=== PATIENT | female | born 1950 | race Native Hawaiian/Other Pacific Islander ===

== ENCOUNTER 2016-08-25 14:08 | Outpatient (CLI) | payer OTHER | END 2016-08-25 19:25 | disposition home or self-care (01) | LOC: RAD 14:08 | DX: M25.562 Pain in left knee (principal) ==

== ENCOUNTER 2016-09-18 09:52 | Outpatient (CLI) | payer OTHER | END 2016-09-18 22:03 | disposition home or self-care (01) | LOC: MRI 09:52 | DX: M54.5 Low back pain (principal) | CPT/HCPCS: 36415; 82565; 84520; A9576 ==

== ENCOUNTER 2017-04-22 14:38 | Outpatient (CLI) | payer OTHER | END 2017-04-22 15:40 | disposition home or self-care (01) | LOC: MRI 14:38 | DX: M25.562 Pain in left knee (principal) ==

== ENCOUNTER 2018-02-22 13:55 | Outpatient (CLI) | payer OTHER | END 2018-02-22 20:28 | disposition home or self-care (01) | LOC: RAD 13:55 | DX: S09.8XXA Other specified injuries of head, initial encounter (principal) ==

== ENCOUNTER 2018-02-26 11:50 | Outpatient (CLI) | payer OTHER | END 2018-02-26 22:04 | disposition home or self-care (01) | LOC: CT 11:50 | DX: S09.8XXA Other specified injuries of head, initial encounter (principal) ==

== ENCOUNTER 2018-03-04 11:56 | Outpatient (CLI) | payer OTHER | END 2018-03-04 22:52 | disposition home or self-care (01) | LOC: US 11:56 | DX: I67.89 Other cerebrovascular disease (principal) ==

== ENCOUNTER 2018-03-11 14:18 | Outpatient (CLI) | payer OTHER | END 2018-03-11 19:53 | disposition home or self-care (01) | LOC: US 14:18 | DX: E04.1 Nontoxic single thyroid nodule (principal) ==

== ENCOUNTER 2019-04-10 03:52 | Observation (INO) | payer OTHER ==
[~2019-04-10] VITALS: Ht 165.1 cm; Wt 76.8 kg
[2019-04-10 04:12] VITALS: BP 176/80; TEMP 98.3
[2019-04-10] MEDS ORDERED: KLOR-CON M1010 MEQ PO (04:13)
[2019-04-10] MEDS ORDERED: AMLODIPINE BESYLATE PO (04:13)
[2019-04-10] MEDS ORDERED: AVALIDE1 TA1 PO (04:13)
[2019-04-10] MEDS ORDERED: DULOXETINE HCL60 MG PO (04:13)
[2019-04-10] MEDS ORDERED: LIPITOR10 MG PO (04:14)
[2019-04-10 04:49] LABS: PLATELET COUNT 663 K/uL (152-353)
[2019-04-10 05:02] LABS: POTASSIUM 3.8 mmol/L (3.6-5.2); SODIUM 121 mmol/L (136-145)
[2019-04-10 09:00] VITALS: BP 161/82; TEMP 98.3; Ht 165.1 cm; Wt 76.8 kg
[2019-04-10] MEDS ORDERED: [UNRECOGNIZED DRUG - OTHER] PO (09:12)
[2019-04-10] MEDS ORDERED: CEPHALEXIN500 MG PO (09:13)
[2019-04-10 12:00] VITALS: BP 156/79; TEMP 98.3
[2019-04-10 12:56] LABS: POTASSIUM 2.8 mmol/L (3.6-5.2)
[2019-04-10 16:00] VITALS: BP 155/74; TEMP 98.5
[2019-04-10 20:00] VITALS: BP 182/90; TEMP 98.2
[2019-04-11] VITALS (7 sets, daily range): BP systolic 156–183; BP diastolic 73–89; TEMP 97.5–98.9
[2019-04-11 06:17] LABS: PLATELET COUNT 487 K/uL (152-353)
[2019-04-11 06:25] LABS: POTASSIUM 3.6 mmol/L (3.6-5.2)
[2019-04-12 04:00] VITALS: BP 166/88; TEMP 98.5
[2019-04-12 05:36] LABS: PLATELET COUNT 512 K/uL (152-353)
[2019-04-12 08:00] VITALS: BP 165/83; TEMP 98.7
== END 2019-04-12 11:00 | disposition home or self-care (01) ==
LOC: ED 03:52 → MED/SURG 05:45
PROVIDERS: Emergency Medicine; ADMIT Internal Medicine
DX: T36.1X5A Adverse effect of cephalosporins and other beta-lactam antibiotics, initial encounter (principal); R11.2 Nausea with vomiting, unspecified; E87.1 Hypo-osmolality and hyponatremia; E87.6 Hypokalemia; D72.828 Other elevated white blood cell count; K04.7 Periapical abscess without sinus; R41.82 Altered mental status, unspecified; I10 Essential (primary) hypertension
CPT/HCPCS: 36415; 51702; 80048; 80053; 81000; 82150; 83605; 83690; 83735; 84484; 85027; 93005; 96360; 96375; 99220; 99284; G0378; J2405

== ENCOUNTER 2021-11-29 10:28 | Outpatient (CLI) | payer OTHER, MEDICARE ==
[~2021-11-29 10:28] MED LIST: AMLODIPINE BESYLATE PO; AVALIDE1 TA1 PO; CEPHALEXIN500 MG PO; DULOXETINE HCL60 MG PO; KLOR-CON M1010 MEQ PO; LIPITOR10 MG PO; [UNRECOGNIZED DRUG - OTHER] PO
== END 2021-11-29 21:00 | disposition home or self-care (01) ==
LOC: US 10:28
PROVIDERS: ATTEND Registered Nurse
DX: R60.0 Localized edema (principal)